=== PATIENT | male | born 1985 | race Two or more races ===

== ENCOUNTER 2022-07-25 23:21 | Emergency (ER) | payer OTHER ==
[~2022-07-25] VITALS: Ht 175.3 cm; Wt 113.4 kg
[2022-07-26] MEDS ORDERED: ZYRTEC10 MG PO ×2 (04:11→05:42)
[2022-07-26] MEDS ORDERED: MOLNUPIRAVIR (200 MG PO (04:11)
[2022-07-26] MEDS ORDERED: MUCINEX DM ER1 EAC1 PO (04:11)
[2022-07-26] MEDS ORDERED: ACETAMINOPHEN650 M2 PO (04:11)
[2022-07-26] MEDS ORDERED: LEVALBUTER0.63 MG/3 IH (04:11)
== END 2022-07-26 05:50 | disposition home or self-care (01) ==
LOC: ER 23:21
DX: U07.1 COVID-19 (principal); J06.9 Acute upper respiratory infection, unspecified

== ENCOUNTER → 2023-02-09 | Outpatient (CLI) | payer OTHER ==
[~2023-02-09] MED LIST: ACETAMINOPHEN650 M2 PO; LEVALBUTER0.63 MG/3 IH; MOLNUPIRAVIR (200 MG PO; MUCINEX DM ER1 EAC1 PO; ZYRTEC10 MG PO
== END | disposition home or self-care (01) ==
LOC: LAB 08:33
DX: Z20.828 Contact with and (suspected) exposure to other viral communicable diseases (principal); Z20.818 Contact with and (suspected) exposure to other bacterial communicable diseases